=== PATIENT | male | born 1950 | race Caucasian/White ===

== ENCOUNTER 2023-06-28 00:43 | Emergency (ER) | payer MEDICARE, BC ==
[~2023-06-28] VITALS: Ht 167.6 cm; Wt 78.0 kg
[2023-06-28] MEDS ORDERED: ACETAMINOPHEN ES 500 MG TABLET ONE (02:00)
[2023-06-28] MEDS: ACETAMINOPHEN ES 500 MG TABLET PO ONE (02:06)
[2023-06-28] MEDS ORDERED: TRAM50TA2 PO (02:24)
[2023-06-28] MEDS ORDERED: ONDA4TAB11 PO (02:24)
[2023-06-28 03:02] VITALS: BP 118/70; TEMP 98.1; O2SAT 98
== END 2023-06-28 03:03 | disposition home or self-care (01) ==
LOC: ER 00:49
DX: S29.012A Strain of muscle and tendon of back wall of thorax, initial encounter (principal); V49.88XA Car occupant (driver) (passenger) injured in other specified transport accidents, initial encounter; Y93.89 Activity, other specified; Y92.89 Other specified places as the place of occurrence of the external cause; Y99.8 Other external cause status
CPT/HCPCS: 71046; A4606; A4663; A9150